=== PATIENT | male | born 1970 | race Caucasian/White ===

== ENCOUNTER 2017-01-12 15:38 | Emergency (ER) | payer SELFPAY ==
[2017-01-12 15:45] VITALS: BP 149/100
--- NOTE | 2017-01-12 16:15 | RAD ---
INDICATION: Right hand injury COMPARISON: None TECHNIQUE: AP and lateral views were obtained. FINDINGS: There is no acute bony change. 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 The remaining joint spaces are normal. The soft tissues are normal. IMPRESSION: NO ACUTE BONY FINDINGS.
--- NOTE | 2017-01-12 16:19 | UC ---
Hand/Wrist HPI - HPI Summary HPI Summary: Patient presents s/p traumatic injury to the right hand, he fell down yesterday and his hand bent underneath his wrist when he fell. He states he has severe pain with flexion and extension of the fingers, and he notes a swollen area at the base of his thumb, and his fourth and fifth fingers feel numb, and also complaints of pain the the hand and wrist with movement. He states the pain in his hand is severe and he is not able to do his job. - History Of Current Complaint Chief Complaint: UCUpperExtremity Stated Complaint: HAND INJURY Time Seen by Provider: 01/12/17 15:53 Hx Obtained From: Patient ?: No Onset/Duration: Sudden Onset Severity Initially: Moderate Severity Currently: Severe Character Of Pain: Sharp, Dull, Aching Aggravating Factor(s): Movement, Lifting, Flexion, Extension Alleviating: Rest Associated Signs And Symptoms: Positive: Swelling, Numbness/Tingling - Allergies/Home Medications Allergies/Adverse Reactions: Allergies Allergy/AdvReac Type Severity Reaction Status Date / Time No Known Allergies Allergy Verified 01/12/17 15:42 PMH/Surg Hx/FS Hx/Imm Hx Previously Healthy: Yes - Surgical History Surgical History: None - Family History Known Family History: Positive: None - Social History Occupation: Employed Full-time Lives: Alone Alcohol Use: None Substance Use Type: None Smoking Status (MU): Heavy Every Day Tobacco Smoker Review of Systems Skin: Bruising, Other - abrasions on dorsum of hand two 1 cm dry and intact. Musculoskeletal: Arthralgia, Decreased ROM - right hand, inspection- swelling noted at base of thumb with tenderness on palpation of thumb, dorsum of hand, and fourth and fifth fingers. Rom-slow and quarded with pain on flexion and extension of fingers and wrist. neuro-intact. Vasc.+radial and ulnar puleses cap refill less that three seconds., Edema, Myalgia, Other: All Other Systems Reviewed And Are Negative: Yes Physical Exam Triage Information Reviewed: Yes Appearance: Well-Appearing Vital Signs: Initial Vital Signs Temp 98.4 F 01/12/17 15:43 Pulse 76 01/12/17 15:43 Resp 16 01/12/17 15:43 BP 149/100 01/12/17 15:43 Pulse Ox 100 01/12/17 15:43 Vital Signs Reviewed: Yes Eye Exam: Normal ENT Exam: Normal Neck exam: Normal Respiratory Exam: Normal Cardiovascular Exam: Normal Musculoskeletal: Positive: Strength Limited @ - right hand-inspection two small abrasions noted on dorsum of hand, dry and intact. 1 cm in diameter. soft tissue swelling noted at base of thumb. tenderness on palpation at base of thumb , and of fourth and fifth fingers. rom-slow and quarded with reproducible pain on flexion and extension. neuro-intact. vasc+radial and ulnar pulses. cap refill less that three second., ROM Limited @, Edema @ Skin Exam: Other - see above under muscular. Hand/Wrist Course/Dx - Course Course Of Treatment: Patient presents s/p fall resulting in right hand pain. Xrays were negative for fracture or dislocation. He was placed in a cock up spint. pain addressed. He was given a work note and referred to Orthopedist if symtpoms persist. Patient verbalized understanding of the discharge, and was in ageement with the discharge plan. - Differential Dx/Diagnosis Differential Diagnosis/HQI/PQRI: Abrasion, Sprain, Strain Provider Diagnoses: stain. sprain hand Discharge - Discharge Plan Condition: Stable Disposition: HOME Prescriptions: Hydrocodone-Acetaminophen [[place] 5-325 mg] 1 tab PO Q6H PRN #14 tab MDD 4 PRN Reason: hand sprain Ibuprofen TAB* [Motrin TAB* 600 MG] 600 mg PO Q6H PRN #20 tab PRN Reason: sprain hand Patient Education Materials: Hand Sprain (ED) Forms: *Work Release Referrals: Cj Schmidt MD [Medical Doctor] -
== END 2017-01-12 17:15 | disposition home or self-care (01) ==
LOC: UCEAST 15:38
DX: S63.91XA Sprain of unspecified part of right wrist and hand, initial encounter (principal); W19.XXXA Unspecified fall, initial encounter; Y93.9 Activity, unspecified; Y92.9 Unspecified place or not applicable; F17.210 Nicotine dependence, cigarettes, uncomplicated
CPT/HCPCS: 99202; G0463